=== PATIENT | female | born 1935 | race Two or more races ===

== ENCOUNTER → 2016-11-23 | Outpatient (CLI) | payer MEDICARE, MEDICAID ==
[~2016-11-23] MED LIST: ASPI325T32 PO; BEN25 PO; CALC-223 PO; DOCU-144 PO; FURO40TA4 PO; HYDR-3498 PO; LOSA100T7 PO; MAGN400C PO; METO-448 PO; MULT-860 PO; RES15 PO; [UNRECOGNIZED DRUG - OTHER] PO
--- NOTE | 2016-11-23 12:13 | RADRPT ---
PROCEDURE: XR pelvis/right hip. CLINICAL INDICATION: Hip pain TECHNIQUE: AP pelvis/AP and lateral right hip views performed. 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 There is no evidence of loosening of the prosthesis. There is mild left hip osteoarthrosis. This is associated with joint space narrowing, subchondral sc lerosis and osteophytosis. There is normal osseous mineralization. No fractures or osseous lesions are identified. The soft tissues are unremarkable. IMPRESSION: Right total hip replacement. Mild left hip osteoarthrosis. RPTAT: [facility] .Justice Bowling MD, Date Time Electronically viewed and signed by .Justice Bowling MD, on 11/23/2016 12:12 .B/
== END | disposition home or self-care (01) ==
LOC: HKI 11:04
PROVIDERS: ATTEND Orthopaedic Surgery
DX: Z47.1 Aftercare following joint replacement surgery (principal); Z96.641 Presence of right artificial hip joint
CPT/HCPCS: 73502; G0463